=== PATIENT | male | born 1970 | race Caucasian/White ===

== ENCOUNTER → 2021-05-15 | Outpatient (CLI) | payer OTHER | END | disposition home or self-care (01) | LOC: RADMN 10:24 | PROVIDERS: ATTEND Internal Medicine | DX: Z02.1 Encounter for pre-employment examination (principal) | CPT/HCPCS: 71046 ==

== ENCOUNTER 2024-03-12 02:51 | Emergency (ER) | payer OTHER ==
[~2024-03-12] VITALS: Ht 175.3 cm; Wt 108.2 kg
[2024-03-12 02:52] VITALS: TEMP 98
[2024-03-12 03:26] LABS: BASOPHILS % (AUTO) 0.7 % (0.0-2.0); COVID AG,FIA SOURCE NASAL SWAB; EOSINOPHILS % (AUTO) 5.5 % (1.0-6.0); HEMATOCRIT 38.4 % (41-53); HEMOGLOBIN 13.1 g/dL (13.5-17.5); LYMPHOCYTES % (AUTO) 33.2 % (22.0-44.0); MEAN CORPUSCULAR HEMOGLOBIN 33.1 pg (26.0-34.0); MEAN CORPUSCULAR VOLUME 97 fL (80-100); MONOCYTES # (AUTO) 0.7 K/uL (0.1-1.0); MONOCYTES % (AUTO) 8.1 % (2.0-9.0); NEUTROPHILS # (AUTO) 4.8 K/uL (1.8-7.7); NEUTROPHILS % (AUTO) 52.5 % (40.0-70.0); PLATELET COUNT (AUTO) 199 K/uL (150-450); RED BLOOD CELL COUNT(AUTO) 3.95 MIL/uL (4.50-5.90); RED CELL DISTRIBUTION WIDTH 13.3 % (11.5-14.5)
[2024-03-12 03:35] LABS: INFLUENZA TYPE A NEGATIVE FOR TYPE A (NEGATIVE); INFLUENZA TYPE B NEGATIVE FOR TYPE B (NEGATIVE)
[2024-03-12 03:36] LABS: ANION GAP 9 mmol/L (8-16); CALCIUM, TOTAL 8.1 mg/dL (8.8-10.5); CARBON DIOXIDE 26 mmol/L (22-29); CHLORIDE 103 mmol/L (98-107); CREATININE 1.18 mg/dL (0.60-1.30); GLOMERULAR FILTR. RATE CALC > 60 mL/min (>60); GLUCOSE,RANDOM 121 mg/dL (70-110); POTASSIUM 3.5 mmol/L (3.5-5.1); SODIUM SERUM 138 mmol/L (136-145); UREA NITROGEN, BLOOD 22 mg/dL (7-18)
[2024-03-12 03:39] LABS: SARS-COV2 (COVID) ANTIGEN,FIA Negative (Negative)
[2024-03-12 03:42] LABS: B-TYPE NATRIURETIC PEPTIDE 7 pg/mL (0-100)
[2024-03-12 03:45] LABS: TROPONIN I-HIGH SENSITIVITY 10 ng/L (<76)
[2024-03-12] MEDS ORDERED: IOHEXOL 350 MG/ML 100 ML VIAL ONE (03:59)
[2024-03-12] MEDS ORDERED: SODIUM CHLORIDE 0.9% 100 ML ONE (03:59)
[2024-03-12 04:23] LABS: PH,URINE DRUG SCREEN 5.5 (5.0-8.0)
[2024-03-12 04:24] LABS: AMPHET/METH SCREEN,URINE NEGATIVE (NEGATIVE); BARBITURATE SCREEN, URINE NEGATIVE (NEGATIVE); BENZODIAZEPINES SCREEN,URINE NEGATIVE (NEGATIVE); CANNABINOID SCREEN,URINE NEGATIVE (NEGATIVE); COCAINE SCREEN,URINE NEGATIVE (NEGATIVE); METHADONE SCREEN, URINE NEGATIVE (NEGATIVE); OPIATE SCREEN,URINE NEGATIVE (NEGATIVE); PHENCYCLIDINE SCREEN,URINE NEGATIVE (NEGATIVE)
[2024-03-12 04:26] LABS: ALCOHOL, URINE DRUG SCREEN NEGATIVE (NEGATIVE)
[2024-03-12] MEDS ORDERED: OXYB10TA42 PO (04:30)
[2024-03-12] MEDS ORDERED: TELM80TA10 PO (04:30)
[2024-03-12] MEDS ORDERED: ROSU10TA72 PO (04:30)
[2024-03-12 04:32] VITALS: BP 139/87; PULSE 63; RESP 26; O2SAT 99
== END 2024-03-12 05:25 | disposition home or self-care (01) ==
LOC: EMS 02:51
DX: R06.02 Shortness of breath (principal); E78.00 Pure hypercholesterolemia, unspecified; I10 Essential (primary) hypertension; Z98.890 Other specified postprocedural states; Z20.822 Contact with and (suspected) exposure to COVID-19
CPT/HCPCS: 99285; 71275; 71045; 87426; 80048; 83880; 84484; 85025; 85379; 87804; 36415; 93005; 80307; Q9967; J7050